=== PATIENT | male | born 1970 | race Two or more races ===

== ENCOUNTER 2020-01-31 14:25 | Inpatient (IN) | payer BC, OTHER ==
[~2020-01-31] VITALS: Ht 185.4 cm; Wt 110.7 kg
[2020-01-31] MEDS ORDERED: AZITHROMYCIN 500MG/ 250ML 250 ML IV ONE (14:45)
[2020-01-31] MEDS ORDERED: methylPREDNISolone SOD SUCC 125 MG/2 ML VL IV ONE (14:45)
[2020-01-31] MEDS ORDERED: ZINC SULFATE 220mg CAP or TAB PO ONE (14:45)
[2020-01-31] MEDS ORDERED: ASCORBIC ACID 500 MG TAB PO ONE (14:45)
[2020-01-31 15:15] LABS: Basophils # (auto) 0 10 ^3/uL (0-0.2); Basophils % (auto) 0.5 % (0.0-2.0); Eosinophils # (auto) 0 10 ^3/uL (0-0.8); Eosinophils % (auto) 0.2 % (0.0-7.0); Hematocrit 47.9 % (41.0-53.0); Hemoglobin 16.2 g/dL (13.5-17.5); Lymphocytes # (auto) 0.8 10 ^3/uL (0.4-5.4); Lymphocytes % (auto) 28.4 % (10.0-50.0); Mean Corpuscular Hgb Conc. 33.9 g/dL (32.0-36.0); Mean Corpuscular Volume 91.4 fL (80.0-100.0); Monocytes # (auto) 0.4 10 ^3/uL (0-1.3); Monocytes % (auto) 12.2 % (0.0-12.0); Neutrophils # (auto) 1.7 10 ^3/uL (1.6-8.6); Neutrophils % (auto) 58.7 % (37.0-80.0); Nucleated Red Blood Cells % 0.7 %; Platelet Count (auto) 150 10^3/uL (140-450); Red Blood Cells 5.24 10^6/uL (4.5-5.90); Red Cell Distribution Width 13.5 % (11.8-14.3); White Blood Cell 2.9 10^3/uL (4.4-10.8)
[2020-01-31] MEDS ORDERED: ENOXAPARIN SOD 100 MG/1 ML SYRINGE SC ONE (15:15)
[2020-01-31 15:30] LABS: Potassium 4.3 mmol/L (3.5-5.1)
[2020-01-31 15:41] LABS: Albumin 3.6 g/dL (3.4-5.0); BUN/Creatinine Ratio 9.2; Bilirubin, Total 0.6 mg/dL (0.2-1.0); CRP High Sensitivity 7.86 mg/dL (< 0.3); Calcium 8.9 mg/dL (8.5-10.1); Total Protein 8.2 g/dL (6.4-8.2)
[2020-01-31] MEDS ORDERED: THIAMINE 100mg/ml INJ (200mg/2ml VIAL) IV ONE (17:00)
[2020-01-31] MEDS ORDERED: ACETAMINOPHEN 500 MG TAB PO PRN (17:00)
[2020-01-31] MEDS ORDERED: VANCOMYCIN PER PHARMACY 0 MG IV SCH (17:00)
[2020-01-31] MEDS ORDERED: PIPERACILLIN-TAZOB 3.375GM 100 ML IV ONE (17:00)
[2020-01-31] MEDS ORDERED: MORPHINE SULF INJ 2 MG/ML SYRINGE 1ML IV PRN ×2 (17:00→22:15)
[2020-01-31] MEDS ORDERED: SODIUM CHLORIDE 0.9% 1,000 ML IV SCH (17:00)
[2020-01-31] MEDS ORDERED: NITROGLYCERIN 0.4 MG SL TAB SL PRN ×2 (17:00→22:15)
[2020-01-31 17:48] LABS: Magnesium 2.4 mg/dL (1.6-2.6)
[2020-01-31 20:20] VITALS: BP 113/72
--- NOTE | 2020-01-31 20:20 | NUR ---
pt arrived via wheelchair. pt transferred self to hospital bed. pt attached to 2Lnc. no c/o pain or discomfort.
[2020-01-31] MEDS: VANCOMYCIN 1GM/250ML 250 ML IV SCH (21:49)
[2020-01-31] MEDS: methylPREDNISolone SOD SUCC 40 MG/ML VL IV SCH (21:49)
[2020-01-31 22:00] VITALS: BP 113/72
[2020-01-31] MEDS ORDERED: LORazepam 0.5 MG TAB PO PRN (22:15)
[2020-01-31] MEDS ORDERED: ONDANSETRON HCL 4 MG/2 ML VIAL IV PRN (22:15)
[2020-01-31] MEDS ORDERED: HYDROcodone-ACET 5/325MG TAB PO PRN (22:15)
[2020-01-31] MEDS ORDERED: DOCUSATE SOD 100 MG CAP PO PRN (22:15)
[2020-01-31] MEDS ORDERED: ALUM & MAG HYDROX-SIMETH LIQ(MAALOX) 30 ML PO PRN (22:15)
[2020-01-31] MEDS ORDERED: PNEUMOCOCCAL VACC POLYS 25 MCG/0.5 ML VIAL IM ONE (23:00)
[2020-01-31] MEDS ORDERED: INFLUENZA QUAD 2020-2021 0.5 ML SYRG IM ONE (23:00)
[2020-01-31] MEDS: ALBUTEROL SULF HFA 90MCG INH 200DOSE IN SCH (23:49)
[2020-01-31] MEDS: BUDESONIDE (INHALATION) 180 MCG IH IN SCH (23:49)
[2020-02-01 00:19] LABS: Cholesterol 99 mg/dL (< 200)
[2020-02-01 00:27] LABS: HDL Cholesterol 34 mg/dL (40-59); LDL Cholesterol 66 mg/dL (< 100); Triglycerides 78 mg/dL (< 150)
[2020-02-01] MEDS ORDERED: INFLUENZA QUAD 2020-2021 0.5 ML SYRG IM ONE (01:00)
[2020-02-01] MEDS ORDERED: PNEUMOCOCCAL VACC POLYS 25 MCG/0.5 ML VIAL IM ONE (01:00)
[2020-02-01] MEDS: PIPERACILLIN-TAZOB 3.375GM 100 ML IV SCH ×3 (01:17→11:48)
[2020-02-01 02:34] VITALS: BP 113/72
--- NOTE | 2020-02-01 04:41 | NUR ---
UA sent to lab
[2020-02-01 05:00] VITALS: BP 93/57
[2020-02-01] MEDS: VANCOMYCIN 1GM/250ML 250 ML IV SCH (05:05)
[2020-02-01] MEDS: methylPREDNISolone SOD SUCC 40 MG/ML VL IV SCH (05:06)
[2020-02-01] MEDS: MORPHINE SULF INJ 2 MG/ML SYRINGE 1ML IV PRN ×2 (05:16→10:53)
[2020-02-01 05:51] LABS: Urine Bacteria FEW /hpf (None Seen); Urine Blood Negative /uL (Negative); Urine Specific Gravity 1.014 (1.001-1.035); Urine WBC 3 /hpf (0 - 3)
[2020-02-01 06:08] LABS: Alcohol, Urine < 3.0 mg/dL (0-10); Amphetamine Screen, Urine NEGATIVE (NEGATIVE); Barbiturate Scree,Urine NEGATIVE (NEGATIVE); Benzodiazephine Screen, Urine NEGATIVE (NEGATIVE); Cannabinoid Screen, Urine NEGATIVE (NEGATIVE); Cocaine Screen, Urine NEGATIVE (NEGATIVE); Opiate Scree,Urine NEGATIVE (NEGATIVE); Phencyclidine Screen, Urine NEGATIVE (NEGATIVE)
--- NOTE | 2020-02-01 06:24 | NUR ---
Influenza A and B sent to lab via tube system
[2020-02-01 06:42] LABS: Hemoglobin 15.8 g/dL (13.5-17.5)
[2020-02-01 06:46] LABS: Hematocrit 46.5 % (41.0-53.0); Mean Corpuscular Hemoglobin 31.1 pg (28.0-32.0); Mean Corpuscular Volume 91.6 fL (80.0-100.0); Platelet Count (auto) 159 10^3/uL (140-450); Red Blood Cells 5.07 10^6/uL (4.5-5.90); Red Cell Distribution Width 13.4 % (11.8-14.3)
--- NOTE | 2020-02-01 07:05 | NUR ---
closing note pt resting in semi fowlers with HOB at 30 degrees. pt is on 2Lnc. no c/o pain at this time. endorsed care to day shift ZOHREH Kolb.
[2020-02-01 07:26] LABS: Potassium 4.3 mmol/L (3.5-5.1)
[2020-02-01] MEDS: ALBUTEROL SULF HFA 90MCG INH 200DOSE IN SCH ×3 (07:30→20:23)
[2020-02-01] MEDS: BUDESONIDE (INHALATION) 180 MCG IH IN SCH ×2 (07:30→20:23)
--- NOTE | 2020-02-01 07:30 | NUR ---
Respiratory note: MDI THERAPY NOT GIVEN AT THIS TIME, INHALERS NOT AT BEDSIDE. HR 81, RR 16, SPO2 92% ON 2LPM NC. BREATH SOUNDS CLEAR/DIM WITH NO WHEEZES. WILL FOLLOW UP WITH PHARMACY AND ADMIN MEDICATIONS WHEN AVAILABLE.
[2020-02-01 07:32] LABS: Albumin 3.2 g/dL (3.4-5.0); BUN/Creatinine Ratio 13.2; Calcium 8.6 mg/dL (8.5-10.1)
[2020-02-01 07:36] LABS: White Blood Cell 1.2 10^3/uL (4.4-10.8)
--- NOTE | 2020-02-01 07:36 | NUR ---
critical received critical lab, wbc 1.2. Will page registration clerk hospitalist.
[2020-02-01 07:37] LABS: Band Neutrophils % (manual) 0; Basophils % (manual) 0 (0.0-2.0); Blast Cells 0; Metamyelocytes % 0; Myelocytes % 0; Promyelocytes % 0; Reactive Lymphocytes 0
[2020-02-01 07:38] LABS: Bilirubin, Total 0.4 mg/dL (0.2-1.0); Total Protein 7.7 g/dL (6.4-8.2)
--- NOTE | 2020-02-01 07:38 | NUR ---
Paged parts professional Placed page to parts professional hospitalist. Awaiting call back.
--- NOTE | 2020-02-01 07:40 | NUR ---
opening note Assumed care of patient from NOC RN. Patient is aox4, no s/s of distress noted. Bed is in lowest locked position, call light within reach and side rails up x2. Updated patient on plan of care and patient verbalized understanding. Will continue to monitor q1hr and PRN.
--- NOTE | 2020-02-01 07:48 | NUR ---
Received call back Received call back from stonecutter hospitalist. New orders received, will follow through.
[2020-02-01 09:00] VITALS: BP 117/78
[2020-02-01] MEDS ORDERED: FILGRASTIM (TBO) 300 MCG/0.5 ML SYRG SC ONE (10:00)
[2020-02-01] MEDS ORDERED: THIAMINE 100mg/ml INJ (200mg/2ml VIAL) IV SCH (10:00)
[2020-02-01] MEDS ORDERED: ENOXAPARIN SOD 120 MG/0.8 ML SYRINGE SC SCH (10:00)
[2020-02-01] MEDS: ASCORBIC ACID 1,000 MG TAB PO SCH (10:11)
[2020-02-01] MEDS: CHOLECALCIFEROL (VITD3) 2,000 UNIT CAP PO SCH (10:11)
[2020-02-01] MEDS: ZINC SULFATE 220mg CAP or TAB PO SCH (10:11)
--- NOTE | 2020-02-01 12:00 | NUR ---
Physician rounding Dr. Kumar at bedside. MD updated patient on plan of care, patient verbalized understanding. MD verbally provided patient with information regarding Remdesivir. Patient stated "I would like to read up on it before I sign." Information will be provided to patient. Will continue care.
[2020-02-01] MEDS ORDERED: FUROSEMIDE 20 MG/2 ML VIAL IV ONE (12:45)
[2020-02-01 13:00] VITALS: BP 137/90
[2020-02-01 14:23] LABS: Eosinophils % (manual) 1 (0-7); Lymphocytes % (manual) 38 (10.0-50.0); Monocytes % (manual) 7 (0-12)
--- NOTE | 2020-02-01 14:51 | NUR ---
MDI INHALERS BROUGHT TO BEDSIDE. PROVIDED PT WITH EDUCATION ON NEW MEDICATIONS. ADMINISTERED MDI THERAPY, NO ADVERSE REACTIONS. SPO2 94% ON 2LPM NC. NO S/S OF DISTRESS.
[2020-02-01] MEDS ORDERED: REMDESIVIR 200 MG in NS 210ml LOADING DOSE ADULT IV ONE (17:00)
--- NOTE | 2020-02-01 18:20 | NUR ---
Remdesivir 1710 Vitals pre infusion are 114/75, 94bpm, 90% and 18 respirations. Patient is AOx4 no s/s of distress. 1725 vitals are now 121/74, 94bpm, 91%, and 18 respirations. Patient is AOx4 no s/s of distress, or s/s of adverse effects noted. 1835 vitals are now 132/78, 101bpm, 90%, 18 respirations. Patient is AOx4 no s/s of distress or s/s of adverse effects noted.
[2020-02-01 18:35] VITALS: BP 132/78
--- NOTE | 2020-02-01 19:20 | NUR ---
end of shift note Endorsed care to NOC RN. No s/s of distress noted.
[2020-02-01] MEDS: DOXYCYCLINE 100 MG TAB/CAP PO SCH (21:50)
[2020-02-01 22:00] VITALS: BP 124/84
[2020-02-02 05:00] VITALS: BP 108/64
--- NOTE | 2020-02-02 07:11 | NUR ---
closing note pt resting in semi fowlers with HOB at 30 degrees. pt is on 2Lnc. no c/o pain or discomfort. endorsed care to day shift ZOHREH Causey.
[2020-02-02] MEDS: ALBUTEROL SULF HFA 90MCG INH 200DOSE IN SCH ×3 (07:24→22:00)
[2020-02-02] MEDS: BUDESONIDE (INHALATION) 180 MCG IH IN SCH ×2 (07:24→22:00)
--- NOTE | 2020-02-02 07:40 | NUR ---
opening note Assumed care of patient from NOC RN. Patient is aox4, no s/s of distress noted. Patient noted to be on 2 L nasal cannula. Bed is in lowest locked position, call light within reach and side rails up x2. Updated patient on plan of care and patient verbalized understanding. Will continue to monitor q1hr and PRN.
--- NOTE | 2020-02-02 08:00 | NUR ---
pain patient verbalized being at 8/10 pain. Educated patient on available PRN pain medications and patient stated "I do not want morphine or norco, it made me feel so bad last night. I would prefer a Tylenol." Informed patient that MD will be notified for Tylenol order.
[2020-02-02] MEDS ORDERED: ACETAMINOPHEN 500 MG TAB PO PRN (08:30)
[2020-02-02 08:44] LABS: Basophils # (auto) 0 10 ^3/uL (0-0.2); Basophils % (auto) 0.1 % (0.0-2.0); Eosinophils # (auto) 0 10 ^3/uL (0-0.8); Hematocrit 48.5 % (41.0-53.0); Hemoglobin 16.2 g/dL (13.5-17.5); Lymphocytes # (auto) 1.2 10 ^3/uL (0.4-5.4); Lymphocytes % (auto) 7.7 % (10.0-50.0); Mean Corpuscular Hemoglobin 30.8 pg (28.0-32.0); Mean Corpuscular Hgb Conc. 33.4 g/dL (32.0-36.0); Mean Corpuscular Volume 92.4 fL (80.0-100.0); Monocytes # (auto) 0.8 10 ^3/uL (0-1.3); Monocytes % (auto) 4.8 % (0.0-12.0); Neutrophils # (auto) 13.9 10 ^3/uL (1.6-8.6); Neutrophils % (auto) 87.4 % (37.0-80.0); Nucleated Red Blood Cells % 0.2 %; Platelet Count (auto) 207 10^3/uL (140-450); Red Blood Cells 5.25 10^6/uL (4.5-5.90); Red Cell Distribution Width 13.8 % (11.8-14.3); White Blood Cell 15.9 10^3/uL (4.4-10.8)
[2020-02-02 08:45] VITALS: BP 107/67
[2020-02-02] MEDS: DexAMETHasone SOD PHOS 10MG/1ML VIAL INJ IV SCH (08:59)
[2020-02-02] MEDS: ZINC SULFATE 220mg CAP or TAB PO SCH (08:59)
[2020-02-02] MEDS: cefTRIAXone 1GM/50ML D5W 50 ML IV SCH (08:59)
[2020-02-02] MEDS: CHOLECALCIFEROL (VITD3) 2,000 UNIT CAP PO SCH (09:00)
[2020-02-02] MEDS: ASCORBIC ACID 1,000 MG TAB PO SCH (09:00)
[2020-02-02] MEDS: DOXYCYCLINE 100 MG TAB/CAP PO SCH ×2 (09:00→23:02)
--- NOTE | 2020-02-02 09:11 | NUR ---
patient assessment Patient stated "I have these random bumps on my arms and one on my chest that itch. I noticed them last night, I don't know what they are. They suddenly came up." Assessed patient, no s/s of distress noted. Small raised bump noted on the left lateral chest, right medial forearm and left forearm. Per patient "they are itchy, but only where the bump is." Will continue to monitor.
--- NOTE | 2020-02-02 09:14 | NUR ---
Tho PEREZ Placed page to Dr. Kumar. Awaiting call back.
--- NOTE | 2020-02-02 09:17 | NUR ---
call back Received call back. Updated MD regarding patient complaint of "itchy bumps". Informed MD that patient stated this started "late last night." Per MD new orders were received. Will follow through.
[2020-02-02 09:18] LABS: Albumin 3.2 g/dL (3.4-5.0); Calcium 8.4 mg/dL (8.5-10.1); Potassium 3.7 mmol/L (3.5-5.1)
[2020-02-02 09:21] LABS: BUN/Creatinine Ratio 18.2; Bilirubin, Total 0.4 mg/dL (0.2-1.0); Total Protein 7.7 g/dL (6.4-8.2)
[2020-02-02] MEDS: ENOXAPARIN SOD 40 MG/0.4 ML SYRINGE SC SCH (09:24)
[2020-02-02] MEDS ORDERED: diphenhdrAMINE HCL 50 MG/1 ML VL IV ONE (09:30)
--- NOTE | 2020-02-02 10:54 | NUR ---
physician rounding Dr. Garcia at bedside. updated patient on plan of care. No new orders received.
[2020-02-02 12:56] VITALS: BP 101/55
[2020-02-02] MEDS ORDERED: ACETAMINOPHEN 325 MG TAB PO PRN (13:30)
[2020-02-02 17:00] VITALS: BP 110/66
--- NOTE | 2020-02-02 17:10 | NUR ---
pain educated patient regarding higher level pain, patient stated "I don't want to take the [place] or morphine, it felt like crap after it. I am okay with taking Tylenol for now." Educated patient about pain management, patient verbalized understanding.
[2020-02-02] MEDS: REMDESIVIR 100mg in NS 230ml DAILYx4DAYS (NO VENT) IV SCH (17:15)
--- NOTE | 2020-02-02 18:10 | NUR ---
patient status patient informed CRUTCHING CONTRACTOR that he was feeling unwell. Assessed patient and patient stated "I feel really heavy, especially my left side, my head too. I felt this wave of heaviness culp over me." Patient is AOx4, speech is clear, and patient is able to follow commands, no s/s of SOB or distress noted. Assessed patients lungs throughout, clear breath sounds noted. Pulses are symmetrical and bilaterally equal. Bilateral tax record clerk and bilateral pedal pushes are strong and equal. Vitals are 124/81, 79bpm, 19rr, 93% on 2 L via nasal cannula. Recheck at 1815 are 116/73, 78bpm, 91% and 18 respiration rate. Will page operations executive hospitalist.
--- NOTE | 2020-02-02 18:24 | NUR ---
PAGED PLANER OPERATOR / GRADER Placed page to outside sales consultant, awaiting call back.
--- NOTE | 2020-02-02 18:26 | NUR ---
received call back Received call from Dr. Daniels. provided information on patient status. Per MD patient is to finish current dosage and continue to monitor. Will follow through.
--- NOTE | 2020-02-02 19:00 | NUR ---
remdesivir pre Infusion vitals are 66bpm, 19rr, 94% 110/66 15 min in vitals are 124/76, 80bpm, 18rr, 91%. 1900 post infusion, patient is AOx4, no s/s of distress noted, vitals are 83bpm, 90%, 117/71, 19r.
--- NOTE | 2020-02-02 19:10 | NUR ---
end of shift note Endorsed care to NOC ZOHREH Tim. No s/s of distress noted.
[2020-02-02 23:59] VITALS: BP 110/70
[2020-02-03 05:23] VITALS: BP 112/66
[2020-02-03 06:35] LABS: BUN/Creatinine Ratio 23.3; Bilirubin, Total 0.3 mg/dL (0.2-1.0); Calcium 8.3 mg/dL (8.5-10.1)
--- NOTE | 2020-02-03 07:12 | NUR ---
CLOSING NOTE pt resting in semi fowlers with HOB at 30 degrees. no s/s of respiratory distress. endorsed care to day shift RN Marium.
--- NOTE | 2020-02-03 07:20 | NUR ---
opening note Assumed care of patient from NOC ZOHREH Tim. Patient is AOx4, no s/s of distress noted. Patient noted to be on 2 L nasal cannula, no SOB noted. Bed is in lowest locked position, call light within reach and side rails up x2. Updated patient on plan of care and patient verbalized understanding. Will continue to monitor q1hr and PRN.
[2020-02-03] MEDS: ALBUTEROL SULF HFA 90MCG INH 200DOSE IN SCH ×3 (07:26→21:51)
[2020-02-03] MEDS: BUDESONIDE (INHALATION) 180 MCG IH IN SCH ×2 (07:26→21:51)
[2020-02-03] MEDS: cefTRIAXone 1GM/50ML D5W 50 ML IV SCH (08:53)
[2020-02-03] MEDS: ZINC SULFATE 220mg CAP or TAB PO SCH (08:55)
[2020-02-03] MEDS: DOXYCYCLINE 100 MG TAB/CAP PO SCH ×2 (08:55→21:32)
[2020-02-03] MEDS: DexAMETHasone SOD PHOS 10MG/1ML VIAL INJ IV SCH (08:55)
[2020-02-03] MEDS: CHOLECALCIFEROL (VITD3) 2,000 UNIT CAP PO SCH (08:56)
[2020-02-03] MEDS: ASCORBIC ACID 1,000 MG TAB PO SCH (08:57)
[2020-02-03] MEDS: ENOXAPARIN SOD 40 MG/0.4 ML SYRINGE SC SCH (08:57)
[2020-02-03 09:00] VITALS: BP 119/71
--- NOTE | 2020-02-03 12:55 | NUR ---
care endorsed to ZOHREH hernandez.
[2020-02-03 13:00] VITALS: BP 122/81
[2020-02-03 14:16] VITALS: BP 119/71
[2020-02-03] MEDS ORDERED: FUROSEMIDE 20 MG/2 ML VIAL IV ONE (14:45)
[2020-02-03 17:00] VITALS: BP 111/66
[2020-02-03] MEDS: REMDESIVIR 100mg in NS 230ml DAILYx4DAYS (NO VENT) IV SCH (17:00)
--- NOTE | 2020-02-03 17:00 | NUR ---
PATIENT STATES HE DOES NOT WANT THE REMDSEIVIR BECAUSE HE FEELS TOO MANY SIDE EFFECTS. HE WOULD LIKE TO BE RETESTED FOR THE VIRUS. CALCULUS TEACHER HOSPITALIST PAGED.
--- NOTE | 2020-02-03 19:27 | NUR ---
OPENING NOTE Received report from day shift RN. Patient is A&O X's 4 with no s/s of distress and reports no SOB or any symptoms at this time. Educated patient on POC and to use call light when in need of assistance. Educated patient on remdesivir, patient continuing to refuse medication reporting that it gives him too many side effects. Educated patient on se of IS and self prone as tolerated. Patient verbalized understanding. Patient remains on 2L o2 via [place]. Respirations are even and unlabored. Bed is in lowest/locked position with side rails up X's 2 and call light is within reach of patient. Will continue care.
--- NOTE | 2020-02-03 20:32 | NUR ---
RECEIVED CALL BACK FROM HOSPITALIST regarding patient refusing remdesivir medication earlier today. I educated patient on treatment and patient continues to refuse. Patient informed that if he changes his mind to reach out to me. Patient verbalized understanding. Will continue care.
[2020-02-03 22:00] VITALS: BP 126/78
[2020-02-04 05:00] VITALS: BP 125/83
[2020-02-04 06:08] LABS: Basophils # (auto) 0 10 ^3/uL (0-0.2); Eosinophils # (auto) 0 10 ^3/uL (0-0.8); Eosinophils % (auto) 0.1 % (0.0-7.0); Hematocrit 45.5 % (41.0-53.0); Hemoglobin 14.9 g/dL (13.5-17.5); Lymphocytes # (auto) 1.6 10 ^3/uL (0.4-5.4); Lymphocytes % (auto) 11.4 % (10.0-50.0); Mean Corpuscular Hemoglobin 30.2 pg (28.0-32.0); Mean Corpuscular Hgb Conc. 32.7 g/dL (32.0-36.0); Mean Corpuscular Volume 92.3 fL (80.0-100.0); Monocytes # (auto) 0.9 10 ^3/uL (0-1.3); Monocytes % (auto) 6.9 % (0.0-12.0); Neutrophils # (auto) 11.3 10 ^3/uL (1.6-8.6); Neutrophils % (auto) 81.6 % (37.0-80.0); Nucleated Red Blood Cells % 0.1 %; Platelet Count (auto) 258 10^3/uL (140-450); Red Blood Cells 4.93 10^6/uL (4.5-5.90); Red Cell Distribution Width 13.2 % (11.8-14.3); White Blood Cell 13.8 10^3/uL (4.4-10.8)
[2020-02-04 06:39] LABS: Albumin 3.1 g/dL (3.4-5.0); BUN/Creatinine Ratio 19.8; Bilirubin, Total 0.3 mg/dL (0.2-1.0); Calcium 8.5 mg/dL (8.5-10.1); Total Protein 7.1 g/dL (6.4-8.2)
[2020-02-04] MEDS: ALBUTEROL SULF HFA 90MCG INH 200DOSE IN SCH ×2 (06:56→14:43)
[2020-02-04] MEDS: BUDESONIDE (INHALATION) 180 MCG IH IN SCH (06:57)
--- NOTE | 2020-02-04 07:40 | NUR ---
Refusing Transfer Patient states he does not feel he needs to be transferred and won't go. Patient wants to go home. Addendum: 02/04/20 at 1043 by Carri Heck RN wrong patient
[2020-02-04 08:55] VITALS: BP 121/70
[2020-02-04] MEDS: cefTRIAXone 1GM/50ML D5W 50 ML IV SCH (09:08)
[2020-02-04] MEDS: CHOLECALCIFEROL (VITD3) 2,000 UNIT CAP PO SCH (09:09)
[2020-02-04] MEDS: ZINC SULFATE 220mg CAP or TAB PO SCH (09:10)
[2020-02-04] MEDS: DOXYCYCLINE 100 MG TAB/CAP PO SCH (09:10)
[2020-02-04] MEDS: ASCORBIC ACID 1,000 MG TAB PO SCH (09:11)
[2020-02-04] MEDS: DexAMETHasone SOD PHOS 10MG/1ML VIAL INJ IV SCH (09:11)
--- NOTE | 2020-02-04 09:22 | NUR ---
Notified Dr. Peña Patient does not want to be transferred. Addendum: 02/04/20 at 1043 by Carri Heck RN wrong patient
[2020-02-04] MEDS: ENOXAPARIN SOD 40 MG/0.4 ML SYRINGE SC SCH (10:00)
[2020-02-04 12:55] VITALS: BP 128/80
[2020-02-04] MEDS ORDERED: ASPI-231 PO (13:26)
[2020-02-04] MEDS ORDERED: CHOL1CAP47 PO (13:26)
[2020-02-04] MEDS ORDERED: METH4PAK PO (13:26)
[2020-02-04] MEDS ORDERED: DOX100T PO (13:26)
[2020-02-04] MEDS ORDERED: PANT40TA2 PO (13:27)
[2020-02-04] MEDS ORDERED: ALBUAER3 IN (13:28)
[2020-02-04] MEDS ORDERED: FURO20TA3 PO (13:31)
--- NOTE | 2020-02-04 14:31 | NUR ---
Assessment Patient is a 49-year-old male who is alert and oriented. Prior to admission patient lived home with family and functioned independently. Patient does not have any medical equipment at this time. Per patient he will return home to his prior living arrangements post discharge and family will transport him home. Advised patient to follow up with MD upon d/c day. Advised patient there is a social service consult for home oxygen at 2 l/min. Informed patient he has the right to participate in all discharge planning. Patient verbalized understanding and agreed to discharge plan. Faxed clinical information to [employer] requesting for oxygen portable to be deliver to [facility] . Per Ariella with [facility] oxygen will be deliver to [facility] between 15:30-17:00 and concentrate oxygen to patient home. Addendum: 02/04/20 at 1435 by EMERSON MCGRAW Amended: Links added.
[2020-02-04 14:42] VITALS: BP 119/71
== END 2020-02-04 15:37 | disposition home or self-care (01) | DRG 871 ==
LOC: ER 14:25 → TELE 14:26 → TELE-EAST 20:20
PROVIDERS: ADMIT Hospitalist; ATTEND Internal Medicine Nephrology
PROC: XW033E5 Introduction of Remdesivir Anti-infective into Peripheral Vein, Percutaneous Approach, New Technology Group 5 (ICD-10-PCS; principal; 2020-02-01)
DX: A41.89 Other specified sepsis (principal); J12.89 Other viral pneumonia; J96.01 Acute respiratory failure with hypoxia; U07.1 COVID-19; B17.9 Acute viral hepatitis, unspecified; E87.1 Hypo-osmolality and hyponatremia; D70.9 Neutropenia, unspecified; E66.01 Morbid (severe) obesity due to excess calories; Z68.32 Body mass index [BMI] 32.0-32.9, adult; K59.00 Constipation, unspecified; R65.20 Severe sepsis without septic shock; R73.9 Hyperglycemia, unspecified; Z90.89 Acquired absence of other organs; R21 Rash and other nonspecific skin eruption
CPT/HCPCS: 36415; 36600; 71045; 80053; 80061; 80307; 81001; 82728; 82805; 83036; 83605; 83615; 83735; 84443; 84484; 85007; 85025; 85027; 85379; 85610; 86141; 87040; 87086; 87804; 94640; 96365; 96372; G0378; J0696; J1100; J1447; J2405; J2543

== ENCOUNTER 2020-07-27 07:19 | Emergency (ER) | payer BC ==
[~2020-07-27] VITALS: Ht 177.8 cm; Wt 102.1 kg
[~2020-07-27 07:19] MED LIST: ALBUAER3 IN; CHOL1CAP47 PO; DOX100T PO; METH4PAK PO; PANT40TA2 PO
[2020-07-27] MEDS ORDERED: ASPirin 81 mg TAB PO ONE (08:30)
[2020-07-27 08:42] LABS: Basophils # (auto) 0.1 10 ^3/uL (0-0.2); Eosinophils # (auto) 0.3 10 ^3/uL (0-0.8); Eosinophils % (auto) 4.4 % (0.0-7.0); Hematocrit 46.4 % (41.0-53.0); Hemoglobin 15.6 g/dL (13.5-17.5); Lymphocytes # (auto) 1.5 10 ^3/uL (0.4-5.4); Lymphocytes % (auto) 23.7 % (10.0-50.0); Mean Corpuscular Hemoglobin 31.4 pg (28.0-32.0); Mean Corpuscular Hgb Conc. 33.7 g/dL (32.0-36.0); Monocytes # (auto) 0.9 10 ^3/uL (0-1.3); Monocytes % (auto) 14.6 % (0.0-12.0); Neutrophils # (auto) 3.6 10 ^3/uL (1.6-8.6); Neutrophils % (auto) 56.3 % (37.0-80.0); Nucleated Red Blood Cells % 0.1 %; Platelet Count (auto) 247 10^3/uL (140-450); Red Blood Cells 4.99 10^6/uL (4.5-5.90); Red Cell Distribution Width 14.7 % (11.8-14.3); White Blood Cell 6.4 10^3/uL (4.4-10.8)
[2020-07-27 08:52] LABS: INR 1.02 (0.9-1.15); Partial Thromboplastin Time 26.9 sec (23.0-31.2)
[2020-07-27 09:06] LABS: Albumin 3.8 g/dL (3.4-5.0); Anion Gap 10 (5-15); Blood Urea Nitrogen 13 mg/dL (7-18); Calcium 9.4 mg/dL (8.5-10.1); Carbon Dioxide 23 mmol/L (21-32); Chloride 106 mmol/L (98-107); Glucose 84 mg/dL (74-106); Potassium 4.1 mmol/L (3.5-5.1); Sodium 139 mmol/L (136-145)
[2020-07-27 09:13] LABS: Alanine Aminotransferase 53 U/L (16-61); Alkaline Phosphatase 115 U/L (45-117); Aspartate Aminotransferase 25 U/L (15-37); BUN/Creatinine Ratio 13.7; Bilirubin, Total 0.5 mg/dL (0.2-1.0); GFR African American 109 mL/min; GFR Non-African American 90 mL/min; Total Protein 8.3 g/dL (6.4-8.2)
[2020-07-27 10:00] VITALS: BP 118/82
== END 2020-07-27 10:58 | disposition home or self-care (01) ==
LOC: ER 07:19
DX: R07.89 Other chest pain (principal); R05 Cough; Z79.899 Other long term (current) drug therapy
CPT/HCPCS: 36415; 71045; 80053; 83880; 84484; 85025; 85610; 85730; 93005

== ENCOUNTER 2022-01-10 07:15 | Emergency (ER) | payer BC ==
[~2022-01-10] VITALS: Ht 177.8 cm; Wt 99.0 kg
[2022-01-10 09:12] VITALS: BP 131/86
[2022-01-10] MEDS ORDERED: AZITTAB PO (09:13)
== END 2022-01-10 09:26 | disposition home or self-care (01) ==
LOC: ER 07:15
DX: J01.90 Acute sinusitis, unspecified (principal); Z20.822 Contact with and (suspected) exposure to COVID-19; Z90.89 Acquired absence of other organs
CPT/HCPCS: 36415; 71045; 87426

== ENCOUNTER 2022-03-31 15:35 | Emergency (ER) | payer BC ==
[~2022-03-31] VITALS: Ht 177.8 cm; Wt 93.0 kg
[~2022-03-31 15:35] MED LIST changes: +AZITTAB PO
[2022-03-31 15:49] VITALS: BP 142/86
[2022-03-31] MEDS ORDERED: cefTRIAXone SOD 1,000 MG VL IM ONE (16:15)
[2022-03-31] MEDS ORDERED: ACETAMINOPHEN 500 MG TAB PO ONE (16:15)
[2022-03-31] MEDS ORDERED: IBUP800T27 PO (17:06)
[2022-03-31] MEDS ORDERED: AMOX-277 PO (17:06)
== END 2022-03-31 17:41 | disposition home or self-care (01) ==
LOC: ER 15:35
DX: H66.93 Otitis media, unspecified, bilateral (principal); J03.90 Acute tonsillitis, unspecified; Z90.89 Acquired absence of other organs
CPT/HCPCS: 71046; 96372; 99283; J0696

== ENCOUNTER 2022-04-04 03:13 | Emergency (ER) | payer OTHER, BC ==
[~2022-04-04] VITALS: Ht 177.8 cm; Wt 99.5 kg
[~2022-04-04 03:13] MED LIST changes: +AMOX-277 PO; +IBUP800T27 PO
[2022-04-04 03:44] LABS: Basophils # (auto) 0 10 ^3/uL (0-0.2); Basophils % (auto) 0.3 % (0.0-2.0); Eosinophils # (auto) 0 10 ^3/uL (0-0.8); Eosinophils % (auto) 0.3 % (0.0-7.0); Hematocrit 44.8 % (41.0-53.0); Hemoglobin 15.4 g/dL (13.5-17.5); Lymphocytes # (auto) 0.3 10 ^3/uL (0.4-5.4); Lymphocytes % (auto) 3.7 % (10.0-50.0); Mean Corpuscular Hemoglobin 31.9 pg (28.0-32.0); Mean Corpuscular Hgb Conc. 34.4 g/dL (32.0-36.0); Mean Corpuscular Volume 92.9 fL (80.0-100.0); Monocytes # (auto) 0.3 10 ^3/uL (0-1.3); Monocytes % (auto) 3.8 % (0.0-12.0); Neutrophils # (auto) 7.7 10 ^3/uL (1.6-8.6); Neutrophils % (auto) 91.9 % (37.0-80.0); Red Blood Cells 4.82 10^6/uL (4.5-5.90); White Blood Cell 8.4 10^3/uL (4.4-10.8)
[2022-04-04] MEDS ORDERED: ONDANSETRON ODT 4 MG TAB PO ONE (04:00)
[2022-04-04] MEDS ORDERED: HYDROcodone-ACET 10/325MG TAB PO ONE (04:00)
[2022-04-04] MEDS ORDERED: ALBUTEROL SULF 2.5 MG/0.5ML(0.5%) NEB SOLN NEB ONE (04:00)
[2022-04-04] MEDS ORDERED: KETOROLAC TROMETH 60MG/2ML VIAL IM ONE (04:00)
[2022-04-04] MEDS ORDERED: ACETAMINOPHEN 500 MG TAB PO ONE (04:00)
[2022-04-04 04:15] LABS: Albumin 2.8 g/dL (3.4-5.0); Calcium 8.5 mg/dL (8.5-10.1); Magnesium 2.4 mg/dL (1.6-2.6); Potassium 4.1 mmol/L (3.5-5.1)
[2022-04-04 04:17] LABS: BUN/Creatinine Ratio 14.3
[2022-04-04 04:20] LABS: Bilirubin, Total 0.5 mg/dL (0.2-1.0); Total Protein 6.7 g/dL (6.4-8.2)
[2022-04-04 04:30] VITALS: BP 122/67
[2022-04-04 04:43] LABS: INR 1.02 (0.9-1.15); Partial Thromboplastin Time 31.6 sec (24.6-33.4)
[2022-04-04] MEDS ORDERED: METH4PAK PO (05:12)
[2022-04-04] MEDS ORDERED: IBUP800T27 PO (05:12)
[2022-04-04] MEDS ORDERED: ALBU108A5 IN (05:12)
[2022-04-04] MEDS ORDERED: DOX100T PO (05:12)
== END 2022-04-04 05:35 | disposition home or self-care (01) ==
LOC: ER 03:19
DX: J18.9 Pneumonia, unspecified organism (principal); R05.9 Cough, unspecified; R50.9 Fever, unspecified; R74.01 Elevation of levels of liver transaminase levels; N17.9 Acute kidney failure, unspecified; R74.8 Abnormal levels of other serum enzymes; R91.8 Other nonspecific abnormal finding of lung field; Z90.89 Acquired absence of other organs; Z20.822 Contact with and (suspected) exposure to COVID-19
CPT/HCPCS: 36415; 71045; 80053; 83735; 83880; 84484; 85025; 85610; 85730; 87426; 87804; 93005; 94640; 96372; 99285; J1885; Q0162